=== PATIENT | male | born 1975 | race Caucasian/White ===

== ENCOUNTER 2020-08-06 15:03 | Emergency (ER) | payer BC ==
[~2020-08-06] VITALS: Ht 188 cm; Wt 126.6 kg
[2020-08-06 15:17] VITALS: BP 131/68
--- NOTE | 2020-08-06 15:20 | NUR ---
C/O FEVER,COUGH, ROSA,SORE THROAT 10/10 ,NAUSEA, DIARRHEA X 2 WEEKS. TOOK IBUPROFEN 2 HOURS AGO. ORAL TEMP 99.3 AT THIS TIME. MED HX: DENIES
--- NOTE | 2020-08-06 15:52 | NUR ---
COVID SWAB DONE. SENT TO LAB.
--- NOTE | 2020-08-06 15:52 | NUR ---
PT TAKEN TO X RAY.
[2020-08-06 16:45] VITALS: BP 131/68
--- NOTE | 2020-08-06 16:45 | NUR ---
Patient discharged with v/s stable. Written and verbal after care instructions given and explained. Patient alert, oriented and verbalized understanding of instructions. Ambulatory with steady gait. All questions addressed prior to discharge. ID band removed. Patient advised to follow up with PMD. Rx of TESSALON, PREDNISONE, ALBUTEROL & AZITHROMYCIN given. Patient educated on indication of medication including possible reaction and side effects. Opportunity to ask questions provided and answered.
== END 2020-08-06 16:45 | disposition home or self-care (01) ==
LOC: MED 15:03
DX: J18.9 Pneumonia, unspecified organism (principal); Z20.828 Contact with and (suspected) exposure to other viral communicable diseases
CPT/HCPCS: 71045; 99284; U0003